=== PATIENT | male | born 1965 | race Caucasian/White ===

== ENCOUNTER 2021-01-26 08:49 | Outpatient (CLI) | payer OTHER, SELFPAY ==
--- NOTE | ~2021-01-26 | XR_ITS ---
EXAMINATION: XR fl inj shoulder LT - MR/CT DATE: 01/26/2021 09:54 INDICATION: Adductor weakness at the left shoulder. Recurrent anterior dislocations. TECHNIQUE: A time-out was performed to verify the patient's name, date of , and procedure to b e performed. The procedure including the risks, benefits, and alternatives was discussed with the pat ient. Risks discussed included bleeding and infection. The patient understood the risks and agreed to proceed. The skin overlying the rotator cuff interval of the left glenohumeral joint was prepped an d draped in usual sterile fashion. Anesthetic was administered with 1% lidocaine subcutaneously. A 22 G needle was advanced under fluoroscopic guidance into the joint. Injection of 1 mL of Omnipaque 240 confirmed intra-articular position of the needle. Subsequently, injectate consisting of 12 mL of 2:1:1 mixture of sterile saline:Omnipaque 240:1% lidocaine mixed 200:1 with 529 mg/mL Multihance sridevi olinium contrast was injected with intermittent fluoroscopy confirming intra-articular administration . The needle was removed and the entry site was cleaned and dressed. There were no immediate complic ations. Fluoroscopy exposure time was 0.3 minutes. The total number of images was 194. FINDINGS: Real-time fluoroscopy demonstrates the needle in the left glenohumeral joint. IMPRESSION: 1. Left glenohumeral joint injection of dilute gadolinium contrast mixed for subsequent MRI arthrogra m which will be dictated separately. Reviewed, dictated and finalized at location A. IMPRESSION: 1. Left glenohumeral joint injection of dilute gadolinium contrast mixed for levy bsequent MRI arthrogram which will be dictated separately.
--- NOTE | ~2021-01-26 | MR_ITS ---
EXAMINATION: MR shoulder LT w con DATE: 01/26/2021 10:36 INDICATION: Left shoulder adductor weakness and recurrent anterior shoulder dislocations. TECHNIQUE: Magnetic resonance imaging (MRI) of the left shoulder was performed following intra-artic ular gadolinium contrast injection and without intravenous contrast. Details of the glenohumeral join t injection have been dictated separately. Sequences included axial T2-weighted FS FSE, axial T1-irving ghted FS FSE, coronal oblique T1-weighted FS FSE, coronal oblique T2-weighted FSE, sagittal T2-weight ed FS FSE, sagittal T1-weighted FSE, and ABER (abduction external rotation) T1-weighted FS FSE. COMPARISON: None. FINDINGS: Coracoacromial arch: The acromion undersurface is minimally curved in morphology (type I-II). The coracoacromial ligament is normal. Mild acromioclavicular osteoarthritis. Rotator cuff: The supraspinatus, teres minor and subscapularis tendons are normal. There is mild infraspinatus tend inopathy with mild fraying along the articular side of the tendon near the middle facet footplate adolfo ng which lies the anterosuperior margin of a Hill-Sachs fracture trough. Normal rotator cuff muscle b ulk and signal. Biceps tendon, glenoid labrum and glenohumeral cartilage: Long head of the biceps tendon is normal there is a circumferential tear of the glenoid labrum which is evident as a relatively well-defined contrast filled cleft descending across the base of the super ior labrum and extending posteriorly and inferiorly to the 6:00 position. There is some associated pe riosteal stripping posterosuperiorly. There is minimal residual labral material at the inferior and a nteroinferior rim of the glenoid where the labrum has been largely replaced by small marginal osteoph ytes. Partial-thickness cartilage loss with scattered deeper fissuring along the central, anterior mo st prominently at the anteroinferior glenoid. Small focus of subarticular at the anterior central gle noid and additional subarticular edema along the anteroinferior rim of the glenoid. Partial-thickness cartilage loss with smooth chondral surface along the apex and anterior inferior aspect of the humer al head. Bones and other: There is residual mild marrow edema underlying the Hill-Sachs fracture trough suggesting a likely sub acute injury/reinjury. No evident corresponding osseous Bankart fracture. There is a mid substance te ar of the anterior-inferior glenohumeral ligament. The posterior inferior glenohumeral ligament remai ns intact. There is a tear along the humeral attachment of the intervening inferior glenohumeral caps ule. There is a 12 x 3 x 3 mm loose body along with mild synovitis at the axillary recess. There is a larger more irregular shaped loose body measuring 12 x 10 x 9 mm in the deep subscapular recess. Mil d increased fluid signal in the subacromial/subdeltoid bursa consistent with minimal bursitis. IMPRESSION: 1. Stigmata of likely recurrent anterior glenohumeral dislocation with diffuse labral tear most sever e anteroinferiorly, inferior capsular tear including the anterior-inferior glenoid humeral ligament a nd large Hill-Sachs fracture trough with some mild residual edema suggesting subacute reinjury. 2. Mild infraspinatus tendinopathy with shallow articular sided fraying at the distal tendon along th e anterosuperior margin of the Hill-Sachs fracture trough. 3. Mild to moderate glenohumeral osteoarthritis with loose bodies at the axillary and deep subscapula r recesses. Reviewed, dictated and finalized at location A. IMPRESSION: 1. Stigmata of likely recurrent anterior glenohumeral dislocation with diffuse labral tear most severe anteroinferiorly, inferior capsular tear including the anterior-inferior glenoid humeral l
== END 2021-01-26 08:50 | disposition home or self-care (01) ==
PROVIDERS: PCP Internal Medicine; Visit Provider Orthopaedic Surgery
DX: S43.005D Unspecified dislocation of left shoulder joint, subsequent encounter (principal); X58.XXXD Exposure to other specified factors, subsequent encounter; M19.012 Primary osteoarthritis, left shoulder
CPT/HCPCS: 23350; 73222; A9577; Q9966

== ENCOUNTER 2024-02-08 16:10 | Outpatient (CLI) | payer OTHER, SELFPAY | END 2024-02-08 16:11 | disposition home or self-care (01) | LOC: ANHLAB 16:11 | PROVIDERS: PCP Physician Assistant Medical; Visit Provider Anesthesiology | DX: K40.90 Unilateral inguinal hernia, without obstruction or gangrene, not specified as recurrent (principal) | CPT/HCPCS: 36415; 86850; 86900; 86901 ==

== ENCOUNTER 2024-02-14 00:21 | Day surgery (SDC) | payer OTHER, SELFPAY ==
[2024-02-08 10:48] VITALS: BMI 23.1
--- NOTE | 2024-02-08 10:53 | PC.NURSE ---
Report to the Outpatient Waiting Room, entrance under the green pavilion located off [facility], at time _0930_ on date _[id number]_. Planned Procedure Time: _1130_.? Time changes happen often and if your time is changed the preop area will call you the afternoon before. - You and your visitor will be asked to self-screen and do not enter if you have any COVID symptoms. Please call surgeon if you need to reschedule. - A mask is optional within the hospital at this time. Patients may have clear liquids (water, carbonated beverages, clear teas, apple juice) until 3 hours prior to surgery with a maximum of 20 ounces. - No food from midnight until time of surgery and no smoking Take only the following medications with a SIP of water on the morning of surgery: ___None____ DO NOT STOP ANY OF YOUR OTHER PRESCRIPTION MEDICATIONS PRIOR TO SURGERY EXCEPT THE FOLLOWING Medications to discontinue per physician ___None___ Please no make-up, nail comoran, hairspray, perfume, deodorant, or body powder the day of surgery.? No jewelry (including any body piercings) or valuables the day of surgery, leave them at home.? Please take a shower or bath the night before, or the morning of, surgery with an antibacterial soap.? Wear comfortable, loose fitting clothing.? - Jewelry must be removed prior to entering the operating room.? Rings and piercings that are not removed may be cut off. - The hospital will not accept responsibility for valuables.? - Please leave all valuables, including medications, at home the day of surgery. If you are going home after surgery, a licensed cdl team truck driver must drive you home.? - NO public transportation without another adult if you receive anesthesia. - We recommend that an adult stay with you for 24 hours following discharge. - We also recommend that you do not drive, make important decision, drink alcoholic beverages, or take any drugs that were not prescribed by your health care provider for at least 24 hours after your discharge time. Follow any additional instructions given to you from your surgeon. Telephone instructions given to _Jin__and asked if any additional questions and then verbalized understanding. Patient advised to call surgeon office or pre surgery nurse liaison [phone] if any additional questions.
[2024-02-14] VITALS (10 sets, daily range): BP systolic 95–136; BP diastolic 58–85; PULSE 50–60; RESP 12–20; TEMP 36.3–36.6; O2SAT 96–100; BMI 22.5
[2024-02-14] MEDS: LACTATED RINGERS 1,000 ML 30 ML IV CONT ×2 (10:10→12:26)
[2024-02-14] MEDS: ACETAMINOPHEN 500 MG TABLET 1000 MG PO (10:11)
[2024-02-14] MEDS: KETOROLAC 15 MG/ML VIAL (*BKC) IV PUSH (10:11)
--- NOTE | 2024-02-14 10:56 | P.PNAN_ITS ---
Anes - Initial Pre Proc Eval Procedure: Operation Date: 02/14/24 11:30 Proposed Procedures p Laparoscopic Left Inguinal Hernia Repair with Mesh, Davinci Assisted - Lukas Haley DO Date/Time: 02/14/24 10:56 Surgeon: Lukas Haley DO Pre Op Diagnosis: Lt Ing Hernia Patient Data Age: 58 Gender: M Height: 1.88 m Weight: 79.6 kg Last Vital Signs Temp 97.9 F 02/14/24 09:41 Pulse 53 L 02/14/24 09:41 Resp 18 02/14/24 09:41 BP 100/66 02/14/24 09:41 Pulse Ox 100 02/14/24 09:41 O2 Del Method Room Air 02/14/24 09:41 Allergies Allergy/AdvReac Type Severity Reaction Status Date / Time No Known Allergies Allergy Verified 02/14/24 10:39 Home Medications Medication Instructions Recorded Confirmed Type No Home Medications 11/05/22 02/08/24 History Patient hx anesthesia problems: none Family hx anesthesia problems: none Results Review: All pre-operative results and documents have been reviewed as part of the pre- operative evaluation. [facility] Past Medical History Medical History Allergic rhinitis Elevated PSA Shoulder dislocation (~2004) Left sided, x2 Surgical History Surgical History No pertinent past surgical history Social History Social History Smoking status: Never smoker Alcohol intake: current Drinks per week: 4 Substance use: never Current Housing: Decline to Answer Concerned About Future Housing: Decline to Answer Difficulty Paying Gas/Electric Bills: Decline to Answer Difficulty Paying for Meds: Decline to Answer Currently Unemployed: Decline to Answer Education: Decline to Answer Difficulty w/ Childcare or Family Care: Decline to Answer Living arrangements: with family Spiritual care concerns: No Anes - Eval Final PreProcedure Day of Procedure 02/14/24 10:56 Patient weight: normal Heart: regular rate and rhythm Lungs: clear to auscultation Airway: Mallampati scale class II Neurological: alert and oriented Last oral intake: >/= 8 hours ASA classification: I Emergent: no Anesthetic plan: proceed Anesthesia type and monitoring: general ETT and standard monitoring Results Review: All pre-operative results and documents have been reviewed as part of the pre- operative evaluation. Active, works outdoors, no cp or sob. Informed Consent: The patient's anesthetic plan and its attendant risks and benefits were discussed with the patient/family/POA. Questions were solicited and answers provided to the satisfaction of the patient/family/POA.
--- NOTE | 2024-02-14 11:00 | WPDHPUPDATE1 ---
History and Physical Update Update Date/Time: 02/14/24 11:00 History and Physical has been reviewed, including an updated exam of the patient. There are NO changes in the patient's condition. Risks, benefits, and alternatives have been discussed and questions answered. Patient agrees to proceed with procedure.
[2024-02-14] MEDS: ceFAZolin 2 GM/D5W 50 ML 2 GM/50 ML BAG IVPB (11:24)
[2024-02-14] MEDS: BUPIVACAINE/EPINEPHRINE 0.5% 50 ML VIAL 30 ML INFILTRATE (11:59)
--- NOTE | 2024-02-14 12:20 | W.PM.PROC2 ---
Procedure Note - Detailed Date of Procedure 02/14/24 Pre-op Diagnosis Lt Ing Hernia Post-op Diagnosis Same (Direct LIH) Procedure Performed Laparoscopic left inguinal hernia repair with mesh, da Linette assisted Surgeon Lukas Haley DO Anesthesia General and Local (0.5% bupivacaine with epinephrine) Indications This is a 58-year-old man who presented with a left inguinal hernia. He he had noticed a bulge in the left groin region that has increased in size over the past few years. It is overall asymptomatic but there is an easily visible bulge. A reducible moderate-sized left inguinal hernia was identified on exam. Discussions were made with the patient about treatment options and decision was made to proceed with robotic assisted laparoscopic left inguinal hernia repair with mesh. Findings Laparoscopic left inguinal hernia repair was performed. The patient was found to have a medium-sized direct left inguinal hernia. There was no evidence of a right inguinal hernia. A robotic transabdominal preperitoneal approach was utilized for repair. Once a wide enough preperitoneal pocket was created and the hernia sac was reduced, I then placed a large left 3DMax mid mesh overlying the entire left myopectineal orifice. No specimens were obtained for pathology. Description of Procedure Procedure as well as risks, benefits, and alternatives were discussed with the patient. Written consent was obtained and placed in chart prior to procedure. Patient was brought back to surgical suite. He was placed supine on operating table. Time-out was done to confirm patient and procedure. He was then intubated by Anesthesia Department. His abdomen was prepped and draped in sterile fashion using chlorhexidine prep. 0.5% bupivacaine with epinephrine was infiltrated at each location for incision. An 8 mm incision was made in the left lateral abdomen, and a 5 mm Optiview trocar was advanced through the abdominal layers under direct visualization. Once inside the abdominal cavity, carbon dioxide insufflation was used to create a pneumoperitoneum. A camera was inserted and the abdominal cavity was inspected. The patient was placed in slight Trendelenburg position. An 8 millimeter incision was made on the right lateral abdomen and an 8 millimeter trocar was inserted under direct visualization. Another 8 millimeter incision was made just superior to the umbilicus and an 8 millimeter trocar was inserted under direct visualization. The 5 mm port was then removed and this was replaced with another 8 mm robotic port. The robotic arms were brought up to the patient's bedside and secured to the ports. The camera and instruments were inserted. I then moved over to the robotic console and took control of the camera and instruments. After careful inspection of the abdominal cavity, I began scoring the peritoneum along the left lower quadrant using scissors with electrocautery. The preperitoneal plane was entered and this was carefully dissected caudally along the inferior epigastric vessels. Careful dissection with scissors with electrocautery and blunt dissection was used to continue this dissection. I dissected far enough laterally to allow for mesh placement, and also dissected medially to identify the pubic arch and Casey's ligament. The hernia sac was identified and carefully dissected posteriorly. The cord contents were also identified and the peritoneum was carefully dissected far enough posteriorly to allow for mesh placement. Once an adequate pocket was created, I then placed the mesh within the preperitoneal pocket and carefully unfolded it. The mesh was centered on the hernia defect with adequate overlap circumferentially. The inferior edge of the mesh was inspected to ensure that it was far enough away from the peritoneal edge. The mesh appeared in proper position overlying the entire myopectineal orifice. The mesh was secured using 3-0 Vicryl simple interrupted sutures in Casey's ligament, the superior medial edge, and superior lateral edge of the mesh. The peritoneum was then closed over the mesh using a 3-0 V-lock running absorbable suture. The robotic instruments were removed. The robotic arms were disengaged from the ports and moved away from the bedside. The patient was flattened out in bed, the ports were removed under direct visualization, and the pneumoperitoneum was released. The skin of the incisions was approximated using 4-0 Monocryl subcuticular suture, and Exofin glue was applied on top. The patient was awakened from anesthesia, extubated, and transferred to recovery. Implants Large left 3DMax mid mesh Estimated Blood Loss 5 Complications No immediate complications Condition Stable Disposition Same day [facility] Billing Surgery - Charge Forward: Surgery Billing
[2024-02-14] MEDS: fentaNYL CITRATE INJ (*CRX) 100 MCG/2 ML VIAL 25 MCG IV PUSH (12:26)
== END 2024-02-14 14:45 | disposition home or self-care (01) ==
PROVIDERS: PCP Physician Assistant Medical; Visit Provider Surgery
PROC: 8E0Y4CZ Robotic Assisted Procedure of Lower Extremity, Percutaneous Endoscopic Approach (ICD-10-PCS; CPT 49650; principal; 2024-02-14 11:30)
DX: K40.90 Unilateral inguinal hernia, without obstruction or gangrene, not specified as recurrent (principal)
CPT/HCPCS: 49650; S2900; A9270; C1781; J0690; J1100; J1171; J1885; J2003; J2250; J2405; J2704; J3010; J7030; J7120

== ENCOUNTER 2024-03-01 15:12 | Outpatient (CLI) | payer OTHER, SELFPAY | END 2024-03-01 15:13 | disposition home or self-care (01) | LOC: ANHLAB 15:14 | PROVIDERS: PCP Physician Assistant Medical; Visit Provider Urology | DX: Z01.818 Encounter for other preprocedural examination (principal); R97.20 Elevated prostate specific antigen [PSA] | CPT/HCPCS: 87086 ==

== ENCOUNTER 2024-03-06 00:29 | Day surgery (SDC) | payer OTHER, SELFPAY ==
[2024-02-28 09:38] VITALS: BMI 23.1
--- NOTE | 2024-02-28 09:41 | PC.NURSE ---
Report to the Outpatient Waiting Room, entrance under the green pavilion located off [facility], at time _0600_ on date _[id number]_. Planned Procedure Time: _0800_.? Time changes happen often and if your time is changed the preop area will call you the afternoon before. - You and your visitor will be asked to self-screen and do not enter if you have any COVID symptoms. Please call surgeon if you need to reschedule. - A mask is optional within the hospital at this time. Patients may have clear liquids (water, carbonated beverages, clear teas, apple juice) until 3 hours prior to surgery with a maximum of 20 ounces. - No food from midnight until time of surgery and no smoking. This includes no chewing gum, candy or mints. Take only the following medications with a SIP of water on the morning of surgery: ___None___ DO NOT STOP ANY OF YOUR OTHER PRESCRIPTION MEDICATIONS PRIOR TO SURGERY EXCEPT THE FOLLOWING Medications to discontinue per physician ____None Please no make-up, nail samoan, hairspray, perfume, deodorant, or body powder the day of surgery.? No jewelry (including any body piercings) or valuables the day of surgery, leave them at home.? Please take a shower or bath the night before, or the morning of, surgery with an antibacterial soap.? Wear comfortable, loose fitting clothing.? - Jewelry must be removed prior to entering the operating room.? Rings and piercings that are not removed may be cut off. - The hospital will not accept responsibility for valuables.? - Please leave all valuables, including medications, at home the day of surgery. If you are going home after surgery, a licensed shuttle truck driver must drive you home.? - NO public transportation without another adult if you receive anesthesia. - We recommend that an adult stay with you for 24 hours following discharge. - We also recommend that you do not drive, make important decision, drink alcoholic beverages, or take any drugs that were not prescribed by your health care provider for at least 24 hours after your discharge time. Follow any additional instructions given to you from your surgeon. Telephone instructions given to _Jin_and asked if any additional questions and then verbalized understanding. Patient advised to call surgeon office or pre surgery nurse liaison [phone] if any additional questions.
[2024-03-06 06:09] VITALS: BMI 23.5
[2024-03-06 06:10] VITALS: BP 111/67; PULSE 54; RESP 16; TEMP 36.3; O2SAT 99
[2024-03-06] MEDS: LACTATED RINGERS 1,000 ML 30 ML IV CONT (06:30)
--- NOTE | 2024-03-06 07:24 | PM.IMHP ---
H&P: HPI History of Present Illness Date/Time: 03/06/24 07:24 Chief Complaint: elevated psa Narrative: 58 yr old with elevated psa. Here for uronav us and prostate biopsy Review of Systems Review of Systems: All systems reviewed & are unremarkable except as noted in HPI and below PMFSH Past Medical History Medical History Allergic rhinitis Elevated PSA Shoulder dislocation (~2004) Left sided, x2 Surgical History Surgical History H/O left inguinal hernia repair 02/14/24 Laparoscopic left inguinal hernia repair with mesh, da Linette assisted Dr Haley Social History Social History Smoking status: Never smoker Alcohol intake: current Drinks per week: 2 Substance use: never Current Housing: Decline to Answer Concerned About Future Housing: Decline to Answer Difficulty Paying Gas/Electric Bills: Decline to Answer Difficulty Paying for Meds: Decline to Answer Currently Unemployed: Decline to Answer Education: Decline to Answer Difficulty w/ Childcare or Family Care: Decline to Answer Living arrangements: with family Spiritual care concerns: No Meds Home Medications and Allergies Home Medications ?Medication ?Instructions ?Recorded ?Confirmed ?Type No Home Medications 02/28/24 03/05/24 History Allergies Allergy/AdvReac Type Severity Reaction Status Date / Time No Known Allergies Allergy Verified 03/06/24 07:05 Vital Signs Vital Signs - 24 hr 03/06/24 06:10 Temperature 36.3 C L Pulse Rate 54 L Respiratory Rate 16 Blood Pressure 111/67 Pulse Oximetry 99 Oxygen Delivery Room Air Exam Const: General: cooperative, comfortable and no acute distress Resp: Effort & Inspection: normal respiratory effort Cardio: Rate: regular rate Rhythm: regular rhythm Assessment and Plan Assessment and plan (1) Elevated PSA: Code(s): R97.20 - Elevated prostate specific antigen [PSA] Status: Acute Assessment and Plan: proceed with uronav us and prostate biopsy
--- NOTE | 2024-03-06 07:27 | WPDHPUPDATE1 ---
History and Physical Update Update Date/Time: 03/06/24 07:27 History and Physical has been reviewed, including an updated exam of the patient. There are NO changes in the patient's condition. Risks, benefits, and alternatives have been discussed and questions answered. Patient agrees to proceed with procedure.
--- NOTE | 2024-03-06 08:01 | WPDANESEPPF ---
Anes - Initial Pre Proc Eval Procedure: Operation Date: 03/06/24 08:00 Proposed Procedures p Trans Rectal Ultrasound Fusion Guided Prostate Biopsy - Jordi Arevalo MD Date/Time: 03/06/24 08:01 Surgeon: Jordi Arevalo MD Pre Op Diagnosis: elevated psa Patient Data Age: 58 Gender: M Height: 1.88 m Weight: 83.2 kg Last Vital Signs Temp 36.3 C L 03/06/24 06:10 Pulse 54 L 03/06/24 06:10 Resp 16 03/06/24 06:10 BP 111/67 03/06/24 06:10 Pulse Ox 99 03/06/24 06:10 O2 Del Method Room Air 03/06/24 06:10 Allergies Allergy/AdvReac Type Severity Reaction Status Date / Time No Known Allergies Allergy Verified 03/06/24 07:05 Home Medications ?Medication ?Instructions ?Recorded ?Confirmed ?Type No Home Medications 02/28/24 03/05/24 History Patient hx anesthesia problems: none Family hx anesthesia problems: none Results Review: All pre-operative results and documents have been reviewed as part of the pre-operative evaluation. [facility] Past Medical History Medical History Elevated PSA Shoulder dislocation (~2004) Left sided, x2 Allergic rhinitis Surgical History Surgical History H/O left inguinal hernia repair 02/14/24 Laparoscopic left inguinal hernia repair with mesh, da Linette assisted Dr Haley Social History Social History Smoking status: Never smoker Alcohol intake: current Drinks per week: 2 Substance use: never Current Housing: Decline to Answer Concerned About Future Housing: Decline to Answer Difficulty Paying Gas/Electric Bills: Decline to Answer Difficulty Paying for Meds: Decline to Answer Currently Unemployed: Decline to Answer Education: Decline to Answer Difficulty w/ Childcare or Family Care: Decline to Answer Living arrangements: with family Spiritual care concerns: No Anes - Eval Final PreProcedure Day of Procedure 03/06/24 08:01 Patient weight: normal Heart: regular rate and rhythm Lungs: clear to auscultation Airway: Mallampati scale class II Neurological: alert and oriented Last oral intake: >/= 8 hours ASA classification: I Emergent: no Anesthetic plan: proceed Anesthesia type and monitoring: general GIVS and standard monitoring Results Review: All pre-operative results and documents have been reviewed as part of the pre-operative evaluation. Informed Consent: The patient's anesthetic plan and its attendant risks and benefits were discussed with the patient/family/POA. Questions were solicited and answers provided to the satisfaction of the patient/family/POA.
[2024-03-06] MEDS: ceFAZolin 2 GM/D5W 50 ML 2 GM/50 ML BAG IVPB (08:29)
--- NOTE | 2024-03-06 08:45 | W.PM.PROC2 ---
Procedure Note - Detailed Date of Procedure 03/06/24 Pre-op Diagnosis elevated psa Post-op Diagnosis Same Procedure Performed Uronav us and prostate biopsy Surgeon Jordi Arevalo MD Anesthesia General Description of Procedure Patient was taken to the operative suite correctly identified. Once anesthesia was obtained the transrectal ultrasound probe was inserted. He was in a decubitus position. The MRI image was fused to the ultrasound machine. Three cores were taken from the region of interest. Twelve standard cores were then taken. Patient tolerated procedure well without complications and was taken recovery stable condition. He will call for results in 1 week. This completes dictation. Please send a copy of op note to my office Estimated Blood Loss 0 Drains No Packing No Pathology Yes Complications No immediate complications Condition Stable Disposition PACU
[2024-03-06 08:51] VITALS: BP 92/49; PULSE 55; RESP 16; O2SAT 97
[2024-03-06 09:20] VITALS: BP 124/81; PULSE 50; RESP 20
[2024-03-06 09:50] VITALS: BP 114/75; PULSE 48; RESP 20
== END 2024-03-06 09:57 | disposition home or self-care (01) ==
PROVIDERS: PCP Physician Assistant Medical; Visit Provider Urology
PROC: (CPT 55700; principal; 2024-03-06 08:00)
DX: R97.20 Elevated prostate specific antigen [PSA] (principal); Z98.890 Other specified postprocedural states
CPT/HCPCS: 76872; 55700; G0416; J0690; J2003; J2704; J3010; J7120

== ENCOUNTER 2024-08-14 16:10 | Outpatient (CLI) | payer OTHER, SELFPAY ==
--- OUTSIDE RECORDS SUMMARY | 2024-08-14 16:17 | XMS_ITS | Referral Summary ---
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 Gender Identity Not on file Sexual Orientation Not on file Last Filed Vital Signs Vital Sign Reading Time Taken Comments Blood Pressure - - Pulse - - Temperature - - Respiratory Rate - - Oxygen Saturation - - Inhaled Oxygen Concentration - - Weight 81.6 kg (180 lb) 06/24/2021 1:44 PM CDT Height 188 cm (6' 2 ) 06/24/2021 1:44 PM CDT Body Mass Index 23.11 06/24/2021 1:44 PM CDT Plan of Treatment Not on file Insurance [place] [place] [id number] Care Teams Senior Account Representative Relationship Specialty Start Date End Date Chris Larson MD [address] [place] [id number] PCP - General Internal Medicine 06/12/21
--- OUTSIDE RECORDS SUMMARY | 2024-08-14 16:17 | XMS_ITS | Clinical Summary ---
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 Gender Identity Not on file Sexual Orientation Not on file Obstetrics History Last Filed Vital Signs Vital Sign Reading Time Taken Comments Blood Pressure - - Pulse - - Temperature - - Respiratory Rate - - Oxygen Saturation - - Inhaled Oxygen Concentration - - Weight 81.6 kg (180 lb) 06/24/2021 1:44 PM CDT Height 188 cm (6' 2 ) 06/24/2021 1:44 PM CDT Body Mass Index 23.11 06/24/2021 1:44 PM CDT Plan of Treatment Health Maintenance Due Date Last Done Comments Colon Cancer Screening-Colonoscopy 1965 Depression Screening 1965 Hepatitis C Screening 1965 Prostate Cancer Screening-PSA 1963 Regular Well Visit/Exam 18-64 05/27/1981 Zoster Vaccine (1 of 2) 05/27/2013 DTaP/Tdap/Td Vaccine (2 - Td or Tdap) 05/29/2023 2013 Covid-19 Vaccine (3 - 2023-2 5 season) 2023 02/06/2021, 06/27/2020 Influenza Vaccine (Season Ended) 2024 Hepatitis B Screening Completed 07/27/2013 , 2013 Pneumococcal vaccine <65 Aged Out No longer eligible based on patient's age to complete this topic Insurance [facility] [id number] Care Teams Design Editor Relationship Specialty Start Date End Date Chris Larson MD [address] [place] [id number] PCP - General Internal Medicine 06/12/21
[2024-08-14 17:36] LABS: Prostate Specific Antigen 1.1 ng/mL (< OR = 4.0)
== END 2024-08-14 16:11 | disposition home or self-care (01) ==
PROVIDERS: PCP Physician Assistant Medical; Visit Provider Urology
DX: R97.20 Elevated prostate specific antigen [PSA] (principal)
CPT/HCPCS: 36415; 84153; G0103